=== PATIENT | male | born 1940 | race Caucasian/White ===

== ENCOUNTER → 2021-02-04 | Outpatient (CLI) | payer OTHER ==
[~2021-02-04] VITALS: Ht 175.3 cm; Wt 81.6 kg
[~2021-02-04] MED LIST: ACETAMINOPHEN325 MG PO; ADVAIR 500-501 EACH INH; ASPIRIN EC325 MG PO; ASPIRIN325; ATORVASTATIN CA10 MG PO; BUDESONIDE-FO10.2 G1 INH; CARTIA XT120 M1 PO; DILTIAZEM 24HR120 M1 PO; ENOXAPARIN80 MG/0.8 SUBQ; FLOMAX0.4 MG PO; FOLIC ACID1 MG PO; INDERAL40 MG; LEVALBUTER1.25 MG/0. INH; LEVEMIR; LIPITOR20 MG PO; MIRALAX17 GM PO; MOMETASONE FURO17 GM NASAL; NATEGLINIDE120 MG PO; NEURONTIN 300M300 M2 PO; PREDNISONE 10 M10 MG PO; PROPRANOLOL 1010 MG PO; PROTONIX40 M2 PO; PROTONIX40 M3 PO; PYRIDOSTIGMINE60 M1 PO; SINGULAIR 10 MG10 M1 PO; SPIRIVA18 MCG INH; STARLIX120 MG PO; XARELTO15 MG PO; XARELTO20 MG PO; XOPENEX0.31 MG/3; XOPENEX0.63 MG/3 INH; ZOFRAN4 MG PO; [UNRECOGNIZED DRUG - OTHER] IV
--- NOTE | 2021-02-04 11:58 | NUR ---
[facility] Assessment: 1. History of Osteoarthritis: History of Rheumatoid Arthritis: 2. Height: 5 ft. 9 in. 175.3 cm. Weight: 180.0 lb. oz. 81.648 kg. Patient's BMI: 26.6 3. Vital Signs: BP: Pulse: Resp: Temp: 02 Sat: ECG Mon: 4. Pain Intensity: 4 5. Fall Risk: Dizziness: N Needs help standing or walking: N Fallen in the last 3 months: Y Fall risk comments: 6. Patient on Blood Thinner: XARELTO 7. History of Hypertension: Y 8. Opioid Therapy greater than 6 weeks: Opiate Contract Signed: 9. Risk Assessment Tool Provided: 0 LOW RISK 10. Functional Assessment Tool: 11. Recreational Drug Use: Never Drug Type: Tobacco Use: Former Smoker Tobacco Type: Cigars Amount or Packs/day: How Many Years: Alcohol Use: No Frequency: Quant:
[2021-02-04 15:24] VITALS: BP 135/85
== END ==
LOC: PAIN 06:56
PROVIDERS: ATTEND Anesthesiology Pain Medicine
DX: M54.16 Radiculopathy, lumbar region (principal); M48.061 Spinal stenosis, lumbar region without neurogenic claudication; M54.5 Low back pain; R53.1 Weakness; M79.606 Pain in leg, unspecified; E11.40 Type 2 diabetes mellitus with diabetic neuropathy, unspecified; J45.909 Unspecified asthma, uncomplicated; D68.2 Hereditary deficiency of other clotting factors; M54.30 Sciatica, unspecified side; G89.29 Other chronic pain; Z79.899 Other long term (current) drug therapy; Z88.8 Allergy status to other drugs, medicaments and biological substances; Z87.311 Personal history of (healed) other pathological fracture; Z95.5 Presence of coronary angioplasty implant and graft